=== PATIENT | male | born 1985 | race Caucasian/White ===

== ENCOUNTER 2023-07-01 18:03 | Outpatient (CLI) | payer MEDICAID | END 2023-07-01 23:59 | disposition critical access hospital (66) | LOC: EMS 18:03 | DX: M79.89 Other specified soft tissue disorders (principal); E11.40 Type 2 diabetes mellitus with diabetic neuropathy, unspecified; Z89.421 Acquired absence of other right toe(s); F10.10 Alcohol abuse, uncomplicated | CPT/HCPCS: A0425; A0429; A0999 ==

== ENCOUNTER 2023-07-01 18:28 | Emergency (ER) | payer MEDICAID ==
[2023-07-01 19:56] LABS: BASOPHILS # (AUTO) 0.1 10^3/uL (0.0-0.1); BASOPHILS % (AUTO) 0.9 %; EOSINOPHILS # (AUTO) 0.1 10^3/uL (0.0-0.7); EOSINOPHILS % (AUTO) 1.3 %; HCT - HEMATOCRIT 36.3 % (42.0-52.0); HGB - HEMOGLOBIN 12.2 g/dL (14.0-18.0); LYMPHOCYTES # (AUTO) 1.6 10^3/uL (1.5-3.5); LYMPHOCYTES % (AUTO) 24.3 %; MEAN CORPUSCULAR HEMOGLOBIN 31.5 pg (27.0-31.0); MEAN CORPUSCULAR HGB CONC 33.6 g/dL (32.0-36.0); MEAN CORPUSCULAR VOLUME 93.8 fL (80.0-94.0); MEAN PLATELET VOLUME 9.6 fL (7.4-11.4); MONOCYTES # (AUTO) 0.5 10^3/uL (0.0-1.0); NEUTROPHILS # (AUTO) 4.4 10^3/uL (1.5-6.6); NEUTROPHILS % (AUTO) 65.1 %; PLT - PLATELET COUNT 161 10^3/uL (130-450); RED BLOOD COUNT 3.87 10^6/uL (4.70-6.10); RED CELL DISTRIBUTION WIDTH 13.8 % (12.0-15.0); WHITE BLOOD COUNT 6.7 x10^3/uL (4.8-10.8)
[2023-07-01 20:37] LABS: ALBUMIN/GLOBULIN RATIO 0.7 (1.0-2.2); BILIRUBIN,TOTAL 0.9 mg/dL (0.2-1.0); CALCIUM 8.6 mg/dL (8.5-10.3); CREATININE 0.7 mg/dL (0.6-1.3); MAGNESIUM 1.6 mg/dL (1.7-2.3); POTASSIUM 3.9 mmol/L (3.5-4.5); TOTAL PROTEIN 7.5 g/dL (6.4-8.9)
--- NOTE | 2023-07-01 20:44 | XRAY Report ---
PROCEDURE: Foot 1-2V BL INDICATIONS: r/o osteomyelitis TECHNIQUE: 2 views of each foot COMPARISON: None. FINDINGS: Right foot findings: Amputation of the first MTP. There are bone fragments and ossifications adjacent to the first metatar aury head. Chronic fracture deformities and callus formation at the head/neck of the second and third metatarsal s. There are also surrounding bone fragments and ossifications. Suspected hammertoe deformities. Scat tered mild degenerative changes. Vascular calcifications. Suspected soft tissue swelling in the distal midfoot and forefoot, particularly at the medial aspect. Left foot findings: Minimally displaced fracture at the base of the first distal phalanx. There are mild scattered degene rative changes. There may be a small ossification or hyperdense body medial and plantar to the first MTP joint, near the skin. Vascular calcifications. IMPRESSION: Right: First MTP amputation. Old fractures at the second and third metatarsal heads. Scattered degene rative changes. Callus formation, bone fragments, calcifications around the first, second, third metatarsal has, like ly related to prior injury. Lucencies in particular at the second and third metatarsal heads may be d ue to subacute trauma versus additional underlying infection with pathologic fracture. Consider MRI t o further evaluate. There is soft tissue swelling. Left: Minimally displaced fracture of the first distal phalangeal base. Reviewed by: Kwaku Arce MD on 07/01/2023 8:43 PM PST Approved by: Kwaku Arce MD on 07/01/2023 8:43 PM PST Station ID: [id number]
[2023-07-01] MEDS ORDERED: DOXYCYCLINE 100 MG TABLET PO STA (20:54)
[2023-07-01] MEDS ORDERED: cephALEXin 250 MG CAPSULE PO STA (20:55)
--- NOTE | 2023-07-01 20:59 | ED Physician Documentation ---
PD HPI SKIN - Stated complaint Stated Complaint: FOOT SORES - Chief complaint Chief Complaint: Wound - History obtained from History obtained from: Patient - Additional information Additional information: 38-year-old male with poorly controlled type 2 diabetes was [facility]. Last alcoholic beverage was last night does not appear to be experiencing severe withdrawal symptoms currently. Patient has poorly controlled type 2 diabetes and [place] concern was severe bilateral foot wounds/diabetic ulcers. Pt denies any pain, to feet, denies any recent fevers or chills. Patient had right first toe amputated in March 2023 and says that he has not been managing his chronic diabetic foot ulcer wounds at home. Wounds are malodorous there does appear to be some serosanguineous drainage to bilateral foot ulcers. PD PAST MEDICAL HISTORY - Past Medical History Past Medical History: Yes Endocrine/Autoimmune: Type 1 diabetes - Past Surgical History Past Surgical History: Yes Ortho: Amputation, Other - Present Medications Home Medications: Ambulatory Orders Medication Instructions Recorded Confirmed Doxycycline [Vibramycin] 100 mg PO BID 7 Days #14 tablet 07/01/23 Insulin Glargine [Lantus Solostar] 10 unit SUBQ BID 07/01/23 07/01/23 Insulin Lispro [Humalog] 0 unit SUBQ TID PRN 07/01/23 07/01/23 Trazodone HCl 200 mg PO HS 07/01/23 07/01/23 cephALEXin [Keflex] 500 mg PO Q6H #28 cap 07/01/23 HYDROcod/ACETAM 5/325 [Winifrede 5/325] 1 ea PO Q6H PRN #15 tablet 07/02/23 Meloxicam [Mobic] 7.5 mg PO BID 10 Days #20 tablet 07/02/23 - Allergies Allergies/Adverse Reactions: Allergies Allergy/AdvReac Type Severity Reaction Status Date / Time No Known Drug Allergies Allergy Verified 07/01/23 18:41 - Social History Does the pt smoke?: No Smoking Status: Never smoker Does the pt drink ETOH?: Yes ETOH Use: Liquor Does the pt have substance abuse?: No PD ED PE NORMAL - Vitals Vital signs reviewed: Yes - General General: Alert and oriented X 3 - Cardiac Cardiac: RRR - Respiratory Respiratory: No respiratory distress - Abdomen Abdomen: Non tender - Derm Derm: Other - Free text exam Free text exam: Severe diabetic foot ulcers to bilateral lower feet. On right foot there is a missing first toe from previous amputation, the toe next to the amputation appears to be edematous with erythema serosanguineous drainage. There is a deep pressure ulcer to the left foot that appears to only be involving the skin. And multiple scattered ulcers throughout both feet and toes. Severely malodorous Results - Vitals Vitals: Vital Signs - 24 hr 07/01/23 07/01/23 07/01/23 18:33 18:41 20:41 Temperature 36.0 C L 36.1 C L Heart Rate 100 70 97 Respiratory 18 18 16 Rate Blood Pressure 126/92 H 127/83 H 124/89 H O2 Saturation 100 99 99 07/01/23 22:00 Temperature Heart Rate 75 Respiratory 18 Rate Blood Pressure 104/64 O2 Saturation 100 Oxygen O2 Source Room air - Labs Labs: Microbiology 07/01/23 21:14 Wound Culture - Preliminary Foot - Right Beta Hemolytic Strep Group B Laboratory Tests 07/01/23 07/01/23 19:50 19:50 WBC 6.7 RBC 3.87 L Hgb 12.2 L Hct 36.3 L MCV 93.8 MCH 31.5 H MCHC 33.6 RDW 13.8 Plt Count 161 MPV 9.6 Neut # (Auto) 4.4 Lymph # (Auto) 1.6 Knox # (Auto) 0.5 Eos # (Auto) 0.1 Baso # (Auto) 0.1 Absolute Nucleated RBC 0.00 Nucleated RBC % 0.0 Sodium 134 L Potassium 3.9 Chloride 92 L Carbon Dioxide 33 H Anion Gap 9.0 BUN 4 L Creatinine 0.7 Estimated GFR (MDRD) 128 Glucose 314 H Calcium 8.6 Magnesium 1.6 L Total Bilirubin 0.9 AST 48 H ALT 29 Alkaline Phosphatase 460 H Total Protein 7.5 Albumin 3.0 L Globulin 4.5 H Albumin/Globulin Ratio 0.7 L - Rads (name of study) BL feet xrays Relevant Findings:: Final report received, EMP independent interpretation of test (mild tibial plateau fracture, ) PD Medical Decision Making - ED course ED course: 38-year-old male with poorly controlled diabetes. X-rays do reveal possible osteomyelitis although he has no white count and systemically has not showing any signs of infection, no fever, no tachycardia, hemodynamically stable. He has no white count. We will start him on antibiotics Keflex and doxycycline for osteomyelitis close follow-up with Ortho outpatient. Dressings were changed by RN and patient was taught how to change dressings at home, twice daily. Patient was told to follow-up in his primary care provider and strict return precautions. CIWA remained 0 throughout his visit. Departure - Departure Disposition: Home, Self Care Clinical Impression: Diabetic foot ulcer Qualifiers: Diabetic foot ulcer location: other Diabetes mellitus type: type 2 Laterality: unspecified laterality Non-pressure ulcer stage: unspecified non-pressure ulcer stage Qualified Code(s): E11.621 - Type 2 diabetes mellitus with foot ulcer Cellulitis Qualifiers: Site of cellulitis: unspecified site Qualified Code(s): L03.90 - Cellulitis, unspecified Phalanges fracture, foot Qualifiers: Encounter type: initial encounter Toe: unspecified toe Fracture type: closed Fracture alignment: nondisplaced Laterality: left Qualified Code(s): S92.912A - Unspecified fracture of left toe(s), initial encounter for closed fracture Condition: Fair Instructions: Cellulitis Dc, ED Infec Skin Cellulitis Prescriptions: cephALEXin [Keflex] 500 mg PO Q6H #28 cap Doxycycline [Vibramycin] 100 mg PO BID 7 Days #14 tablet Comments: Thank you for trusting us with your care we have completed x-rays there does appear to be an infection in that right foot. You also have cellulitis. You were also found to have a Minimally displaced fracture of the first distal phalangeal base of the left foot. You can alternate between ibuprofen and Tylenol for this as well as apply ice to as needed for pain. We are starting you on an antibiotic called doxycycline as well as Keflex please take these as prescribed I sent this to [facility] in [place] per your request. Make sure that you are taking all antibiotics until you are completely out. Change the dressings on your feet twice daily. [facility] understanding that you need to take your antibiotics and change her dressing twice a day. Please follow-up with your primary care provider for further evaluation I suspect that in the future you will need your right second toe amputated eventually advised important to keep this area as clean as possible until then to prevent against further infection. Please come back to the emergency department for starting to experience any fevers, chills, body aches, worsening redness and swelling to both feet, drainage that appears to be yellow/green. We are performing a wound culture, the results should be done in 48-72 hours. If antibiotic change is necessary we will call you. Return if worse in the kortney ntime, especially if you develop increased pain, fevers, cannot keep down the medication. Otherwise follow-up with your physician in approximately 2-3 days. Forms: PCP List Discharge Date/Time: 07/01/23 22:41
[2023-07-01 22:33] VITALS: BP 104/64; O2SAT 100
--- NOTE | 2023-07-04 11:46 | ED Physician Documentation ---
ED Addendum - Addendum Addendum: 07/04/23 11:45 Cultures reviewed, he is on Keflex and doxycycline. I wrote for Levaquin 500 mg p.o. daily for 10 days and sent it to [facility] and asked the nurse to call him.
== END 2023-07-01 22:41 | disposition home or self-care (01) ==
LOC: ED 18:28
DX: E11.621 Type 2 diabetes mellitus with foot ulcer (principal); L97.521 Non-pressure chronic ulcer of other part of left foot limited to breakdown of skin; L03.119 Cellulitis of unspecified part of limb; S92.912A Unspecified fracture of left toe(s), initial encounter for closed fracture; X58.XXXA Exposure to other specified factors, initial encounter; Z89.421 Acquired absence of other right toe(s); Z79.4 Long term (current) use of insulin
CPT/HCPCS: 36415; 73620; 80053; 83735; 85025; 87070; 87077; 87181; 87205; 99284; A9270

== ENCOUNTER 2023-07-02 00:37 | Emergency (ER) | payer MEDICAID ==
[2023-07-02 01:24] VITALS: BP 119/67; O2SAT 98
--- NOTE | 2023-07-02 02:29 | ED Physician Documentation ---
PD HPI NVD - Stated complaint Stated Complaint: NAUSEA/FOOT PX - Chief complaint Chief Complaint: General - History obtained from History obtained from: Patient - History of Present Illness Timing - onset: How many hours ago (few) Timing - duration: Hours Timing - details: Gradual onset, Still present Associated symptoms: No: Fever, Abdominal pain, Hematemesis Contributing factors: Alcohol use (last alcohol 1 1/2 days ago. Having now early withdrawal symptoms.). No: Sick contact Recently seen: Emergency Dept (just few hours ago for toe pain, infection. Was to go to back to Detox center but buses has stopped and [facility] did not have ride available. Pt without ride. Had come to ER by EMS. He presents back to ER (has still been in [facility] morning) for treatment.) Review of Systems Constitutional: reports: Fatigue. denies: Fever, Chills Nose: denies: Rhinorrhea / runny nose, Congestion Throat: denies: Sore throat Respiratory: denies: Cough GI: reports: Nausea. denies: Vomiting, Diarrhea Musculoskeletal: reports: Other (left knee pain after fall and twist 2 months ago that has not fully improved. Pain with walking and has some giving out at times. Pain anteromedial. Has toe pain at area of infection as well.) Neurologic: reports: Other (feels shaky). denies: Focal weakness, Numbness PD PAST MEDICAL HISTORY - Past Medical History Past Medical History: Yes Cardiovascular: None Respiratory: None Neuro: None Endocrine/Autoimmune: Type 1 diabetes GI: None : None HEENT: None Psych: None Musculoskeletal: None - Past Surgical History Past Surgical History: Yes Ortho: Amputation, Other - Present Medications Home Medications: Ambulatory Orders Medication Instructions Recorded Confirmed Doxycycline [Vibramycin] 100 mg PO BID 7 Days #14 tablet 07/01/23 Insulin Glargine [Lantus Solostar] 10 unit SUBQ BID 07/01/23 07/01/23 Insulin Lispro [Humalog] 0 unit SUBQ TID PRN 07/01/23 07/01/23 Trazodone HCl 200 mg PO HS 07/01/23 07/01/23 cephALEXin [Keflex] 500 mg PO Q6H #28 cap 07/01/23 HYDROcod/ACETAM 5/325 [[place] 5/325] 1 ea PO Q6H PRN #15 tablet 07/02/23 Meloxicam [Mobic] 7.5 mg PO BID 10 Days #20 tablet 07/02/23 - Allergies Allergies/Adverse Reactions: Allergies Allergy/AdvReac Type Severity Reaction Status Date / Time No Known Drug Allergies Allergy Verified 07/01/23 18:41 - Social History Does the pt smoke?: No Smoking Status: Never smoker Does the pt drink ETOH?: Yes ETOH Use: Liquor Does the pt have substance abuse?: No - Immunizations Immunizations are current?: Yes - POLST Patient has POLST: No Results - Vitals Vitals: Vital Signs - 24 hr 07/02/23 01:17 Temperature 36.6 C Heart Rate 77 Respiratory 18 Rate Blood Pressure 119/67 O2 Saturation 98 Oxygen O2 Source Room air - Rads (name of study) left knee xray Relevant Findings:: Prelim report reviewed, EMP independent interpretation of test (lateral plateau fracture. possible depressed segment. ) left knee CT Relevant Findings:: Prelim report reviewed, EMP independent interpretation of test (definite -punch deformity with over a cm of depression. ) PD Medical Decision Making - ED course Complexity details: reviewed results, considered differential, d/w patient Reviewed Lab Results: knee xray showing tibial plateau fracture with possible depressed mid section. Ct to be done. Blood test labs are not done now as they were done a few hours prior without singificant abnormality. CT scan showing -punch depression over a cm. It is 2 months old, so can presumedly use knee brace plus/minus crutches (he says he has difficulty with crutches) and follow up with Ortho, to whom he was referred for toe injury/infection as well. ED course: The patient had presented to [facility] detox facility for Treatment for alcohol use disorder. Last alcohol use was 1 and half days prior. Presented to there and had swelling and redness of the toe and foot and came to the ER for evaluation. He had not been intake yet so had not had any medicines there. He was evaluated here for toe cellulitis and infection and prescribed doxycycline and Keflex. He was given some medication for inflammation. He was supposed to get a ride back to her to or take the bus but at the time of discharge from here the buses were not running in knowing pick them up from a tomorrow as he was not yet a patient from there. He was unable to make it back up. As such he did start to have some withdrawal symptoms and presented back to the ER. He is having nausea with some episodes of vomiting. He is feeling a little bit shaky. He is not sweaty. He had some mild tachycardic but not hypertensive. He states he had had similar with alcohol withdrawal in the past. He denies fever. As he is here he does comment on injury of the left knee 2 months ago when he initially injured his toes 2. He had not voice the knee issue earlier. He states he has ongoing penile pain on the medial aspect of the knee and it does give out at times. It is persisted without healing well though is improved from the initial injury. We did start an IV and give the patient medication to help with alcohol withdrawal which included phenobarbital, Zofran for nausea. He was also given Toradol for help with his toe and knee pain. We did an x-ray of the knee to evaluate the ongoing pain of it. There is evidence for a prior nonunion tibial plateau fracture with avulsion. Given the timing of the injury 2 months ago, this may be healed in the wrong position. On plain x-ray there is consideration for a dye punch or depression of the plateau. Obtained a CT scan of it here. The patient was feeling quite improved with fluids and the medication he had been given. He states the detox center told him the could have him back up there 630 or 7 in the morning. As such we will just have him here with evaluation and medication for the next few hours. Subsequently I did give a repeat dosing of p.o. Ativan as well as some more Zofran and a oral oxycodone to help with his pains. We will give a oral dose of phenobarbital as well at an interval to preempt worsening withdrawal. We can give him a knee brace. I will refer him to orthopedics regarding the knee and toe. Otherwise he is medically cleared for going to the detox center. Departure - Departure Clinical Impression: Alcohol withdrawal, Alcohol use disorder, Diabetes, Tibial plateau fracture, left, Toe infection Condition: Stable Record reviewed to determine appropriate education?: Yes Instructions: ED Fx Lower Ext Follow-Up: Dougie Jose MD [Provider Admit Priv/Credential] - Orthopedic [facility] [Provider Group] [facility] [Provider Group] Prescriptions: Meloxicam [Mobic] 7.5 mg PO BID 10 Days #20 tablet HYDROcod/ACETAM 5/325 [[place] 5/325] 1 ea PO Q6H PRN #15 tablet PRN Reason: Pain Comments: Continue with the antibiotics previously prescribed on the earlier visit. Alcohol use disorder treatment per the [facility] center. Your knee x-ray does show a plateau fracture. Likely there was some element of ligament and cartilage injury associated. The CT scan does show a depression of the area. It send clear if this is healed too much in the wrong position versus having it surgery and elevated up to more correct position. I would have you follow-up with orthopedics. Call and make an appointment for when you will be out from the detox, presumably early next week. You will want to have them evaluate both your knee and also the toe infection. I provided the name and number for the local orthopedic group here in [place]. Alternatively could make sense to have a orthopedist closer to your home. I ga ve the phone number for 1 out of [facility]. I believe they are also in [facility]. For now you can use a knee brace to help support the knee. It is going to be healed enough in position (even if the wrong position) after 2 months that he will not be moving around much at the knee brace will still help with some of the supportive ligaments etc. Crutches if needed for partial to no weightbearing. Use some anti-inflammatories to help with pains. I can prescribe some other pain medicine to use as needed. I sent these to the same pharmacy as the antibiotics were. Good luck with your alcohol detox and stick with it. Forms: PCP List
[2023-07-02] MEDS ORDERED: ONDANSETRON 4 MG/2 ML VIAL IVP STA ×2 (02:41→05:48)
[2023-07-02] MEDS ORDERED: SODIUM CHLORIDE 0.9% 1,000 ML IV STA (02:41)
[2023-07-02] MEDS ORDERED: GABAPENTIN 100 MG CAPSULE PO STA (02:42)
[2023-07-02] MEDS ORDERED: PHENobarbital 65 MG/ML VIAL IV STA (02:42)
[2023-07-02] MEDS ORDERED: ACETAMINOPHEN 500 MG TABLET PO STA (03:36)
[2023-07-02] MEDS ORDERED: KETOROLAC 15 MG/ML VIAL IVP STA (03:36)
[2023-07-02] MEDS ORDERED: oxyCODONE 5 MG TABLET PO STA (05:38)
[2023-07-02] MEDS ORDERED: PHENobarbital 65 MG/ML VIAL IM STA (05:38)
[2023-07-02] MEDS ORDERED: LORazepam 1 MG TABLET PO STA (05:39)
[2023-07-02] MEDS ORDERED: cephALEXin 250 MG CAPSULE PO STA (05:48)
[2023-07-02] MEDS ORDERED: DOXYCYCLINE 100 MG TABLET PO STA (05:48)
[2023-07-02] MEDS ORDERED: MAGNESIUM OXIDE 400 MG TABLET PO STA (05:55)
--- NOTE | 2023-07-02 08:22 | CT Report ---
PROCEDURE: Lower Extremity LT WO INDICATIONS: tibeal plateau fx on xray, ? depressed TECHNIQUE: Noncontrast 3-mm axial sections acquired from the distal tibial shaft to the talar dome, with coronal and sagittal reformats. For radiation dose reduction, the following was used: automated exposure c ontrol, adjustment of mA and/or kV according to patient size. COMPARISON: Left knee radiograph from the same day. FINDINGS: Image quality: Excellent. Bones: Again noted is an acute comminuted intra-articular fractures involving medial tibial plateau with fracture lines extending to both anterior and the posterior cortex of proximal tibia and up to 3 .5 mm depression at the fracture site. No other fracture or dislocation is noted. 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 Tiny radiolucent area s are seen scattered in the distal femur, proximal tibia and fibula. No cortical destruction or abnor mal periosteal reaction is seen. Soft tissues: There is small to moderate lipohemarthrosis. No full-thickness quadriceps tendon or pa tellar tendon rupture. No gross full-thickness ACL or PCL rupture. Large Howard's cyst is seen measure s up to 2.9 x 3.7 x 6.8 cm in size. No calcified intra-articular loose bodies or abnormal soft tissue calcifications. Impression: 1. Acute comminuted and intra-articular fracture involving medial tibial plateau with up to 3.5 mm de pression at fracture site and small to moderate lipohemarthrosis. 2. Large Howard's cyst as above. 3. Tiny radiolucent areas scattered in visualized left knee osseous structures most likely represent osteopenia advanced for patient's age suggest clinical correlation. No significant discrepancies from preliminary reading. Reviewed by: Todd Gatica MD on 07/02/2023 8:21 AM PST Approved by: Todd Gatica MD on 07/02/2023 8:21 AM PST Station ID: [id number]
--- NOTE | 2023-07-02 08:25 | XRAY Report ---
PROCEDURE: Knee 3V LT INDICATIONS: fall with knee injury TECHNIQUE: 3 views of the knee(s) were acquired. COMPARISON: None. FINDINGS: Bones: Acute slightly depressed fracture involving medial tibial plateau is seen with fracture line extending to articulating surface. No other fracture is seen. No suspicious bony lesions. Soft tissues: Small to moderate knee joint effusion. No suspicious soft tissue calcifications or mas ses. IMPRESSION: Acute slightly depressed medial tibial plateau fracture with small to moderate joint effusion.. Findings are concordant with preliminary interpretation provided by [facility]. Reviewed by: Todd Gatica MD on 07/02/2023 8:24 AM PST Approved by: Todd Gatica MD on 07/02/2023 8:24 AM PST Station ID: [id number]
== END 2023-07-02 07:41 | disposition home or self-care (01) ==
LOC: ED 00:37
DX: F10.939 Alcohol use, unspecified with withdrawal, unspecified (principal); S82.142A Displaced bicondylar fracture of left tibia, initial encounter for closed fracture; X50.1XXA Overexertion from prolonged static or awkward postures, initial encounter; L03.039 Cellulitis of unspecified toe; R11.0 Nausea; R00.0 Tachycardia, unspecified; E10.9 Type 1 diabetes mellitus without complications; Z79.4 Long term (current) use of insulin
CPT/HCPCS: 73562; 73700; 96374; 96375; 96376; 99283; 99284; A9270; J2560; J8499